=== PATIENT | female | born 1960 | race Caucasian/White ===

== ENCOUNTER 2024-06-06 10:44 | Emergency (ER) | payer OTHER ==
[2024-06-06 11:19] VITALS: BP 127/66; O2SAT 100
--- NOTE | 2024-06-06 12:27 | ED Physician Documentation ---
PD HPI HEAD INJURY - Stated complaint Stated Complaint: GLF,HIT HEAD, LARSEN/BUMP - Chief complaint Chief Complaint: Trauma Hd/Nk - History obtained from History obtained from: Patient - History of Present Illness Mechanism of head injury: Fell Timing - onset: Last night Location of injury: Right, Back Quality of pain: Pain Associated symptoms: Nausea / vomiting. No: LOC, AMS, Neck pain Symptoms worsen with: Palpation. 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 ), considered differential (fall with head impact last evening. LARSEN after and nausea with emesis. Still some LARSEN this morning, but no other concussive symptoms this morning. ), d/w patient ED course: She has just 1+ points by Chloride Head Injury rules with emesis last evening. But cannot exclude ICH based on that so shared decision for head CT. This was negative. Departure - Departure Disposition: 01 Home, Self Care Clinical Impression: Fall from slip, trip, or stumble, Head contusion Condition: Stable Record reviewed to determine appropriate education?: Yes Comments: Your head CT appears normal without any signs of bleeding swelling or injury inside. The formal radiology reading just came back as well which has the same opinion. You will still have some headache. Tylenol ibuprofen if needed for pains or tenderness. The contusion on the scalp should go down over several days or so. Forms: PCP List Discharge Date/Time: 06/06/24 13:39
--- NOTE | 2024-06-06 13:18 | CT Report ---
PROCEDURE: Head WO INDICATIONS: fall, head injury TECHNIQUE: Noncontrast 4.5 mm thick angled axial sections acquired from the foramen magnum to the vertex. For r adiation dose reduction, the following was used: automated exposure control, adjustment of mA and/or kV according to patient size. COMPARISON: None. FINDINGS: Image quality: Excellent. CSF spaces: Basal cisterns are patent. No extra-axial fluid collections. Ventricles are normal in size and shape. Brain: No midline shift. No intracranial masses or hemorrhage. Judd-white matter interface is norm al. Bilateral basal ganglia hyperintensities. Most suggestive of calcification given its symmetry. Skull and face: Calvarium and visualized facial bones are intact, without suspicious lesions. Sinuses: Visualized sinuses and mastoids are clear. IMPRESSION: No acute intracranial pathology. Reviewed by: Nasreen Trujillo MD on 06/06/2024 1:17 PM PDT Approved by: Nasreen Trujillo MD on 06/06/2024 1:17 PM PDT Station ID: [id number]
== END 2024-06-06 13:39 | disposition home or self-care (01) ==
LOC: ED 10:44
DX: S00.93XA Contusion of unspecified part of head, initial encounter (principal); W01.0XXA Fall on same level from slipping, tripping and stumbling without subsequent striking against object, initial encounter
CPT/HCPCS: 99284